=== PATIENT | male | born 1990 | race Caucasian/White ===

== ENCOUNTER 2017-11-09 23:12 | Emergency (ER) | payer SELFPAY ==
[2017-11-09] MEDS ORDERED: Albuterol-Ipratrop 3 mg / 0.5 (3 ml) UD INH STA ×3 (23:34→23:41)
[2017-11-09 23:54] LABS: BASO % 0.4 % (0.0-2.0); EOS # 0.5 K/uL (0.0-0.7); EOS % 5.2 % (0.0-4.0); HEMOGLOBIN 15.2 g/dL (12.0-18.0); LYMPH # 1.2 K/uL (1.0-4.3); LYMPH % 12.6 % (20.0-40.0); MEAN CELL VOLUME 80.9 fl (80.0-94.0); MEAN CORPUSCULAR HEMOGLOBIN 27.7 pg (27.0-31.0); MEAN CORPUSCULAR HGB CONC 34.2 g/dL (33.0-37.0); MEAN PLATELET VOLUME 9.9 fl (7.2-11.7); MONO # 0.6 K/uL (0.0-0.8); MONO % 5.9 % (0.0-10.0); NEUT # 7.3 K/uL (1.8-7.0); NEUT % 75.9 % (50.0-75.0); NRBC % 0.1 % (0.0-0.0); RBC 5.51 Mil/uL (4.40-5.90); RED CELL DISTRIBUTION WIDTH 13.6 % (11.5-14.5); WHITE BLOOD COUNT 9.7 K/uL (4.8-10.8)
[2017-11-10 00:03] LABS: ALB/GLOB RATIO 1.2 (1.0-2.1); ALBUMIN 4.5 g/dL (3.5-5.0); ALT/SGPT 110 U/L (21-72); AST/SGOT 48 U/L (17-59); BLOOD UREA NITROGEN 20 mg/dl (9-20); GFR AFRICAN-AMERICAN > 60; GFR NON-AFRICAN AMERICAN > 60
[2017-11-10 00:17] LABS: ABG ALLEN TEST YES; ARTERIAL BLOOD GAS HEMOGLOBIN 15.9 g/dL (11.7-17.4); ARTERIAL BLOOD GAS O2 CAPACITY 21.2 mL/dL (16-24); ARTERIAL BLOOD GAS O2 CONTENT 21.3 ML/dL (15-23); ARTERIAL BLOOD GAS O2 SAT 100.4 % (95-98); ARTERIAL BLOOD GAS PCO2 39 mm/Hg (35-45); ARTERIAL BLOOD GAS PH 7.41 (7.35-7.45); ARTERIAL BLOOD GAS PO2 98 mm/Hg (80-100); ARTERIAL BLOOD GAS TCO2 25.9 mmol/L (22-28)
[2017-11-10] MEDS ORDERED: Magnesium Sulfate 2 gm/50 ml 2 GM/50 ML BAG IVPB ONE (00:20)
[2017-11-10] MEDS ORDERED: Magnesium Sulfate 2 gm/50 ml 2 GM/50 ML BAG ONE (00:24)
--- NOTE | 2017-11-10 00:41 | ED PDOC ---
- Laboratory Results Result Diagrams: 11/09/17 23:51 11/09/17 23:51 - ECG O2 Sat by Pulse Oximetry: 93 (RA) Medical Decision Making Medical Decision Making: Patient signed out to me by Dr. Elizabeth at 00:00, pending labs and re- evaluation. (-) for influenza a/b Remining labs show no clinically significant abnormalities including Troponin and proBNP Time: 03:38 CT Angio Chest PE Protocol FINDINGS: No emboli in the main pulmonary arteries. No emboli distally however evaluation is suboptimal secondary to patient motion and bolus timing. No aortic dissection or aneurysm. No pleural or pericardial effussions. No pulmonary consolidation. IMPRESSION: No acute findings. Patient is no longer tachycardiac or hypoxic. Marked improvements in symptoms reported by patient. Diagnoses are acute bronchitis and flu-like symptoms. Upon provider reevaluation patient is feeling better, is medically stable, and requires no further treatment in the ED at this time. Patient will be discharged with Rx for Proair Hfa, Zithromax, Tamiflu and predniSONE Tab. Counseling was provided and all questions were answered regarding diagnosis and need for follow up with PCP. There is agreement to discharge plan. Return if symptoms persist or worsen. Scribe Attestation: Documented by Alton Hassan, acting as a scribe for Logan Maier M.D Provider Scribe Attestation: All medical record entries made by the Scribe were at my direction and personally dictated by me. I have reviewed the chart and agree that the record accurately reflects my personal performance of the history, physical exam, medical decision making, and the department course for this patient. I have also personally directed, reviewed, and agree with the discharge instructions and disposition. Disposition - Clinical Impression Clinical Impression: Bronchitis with bronchospasm, Flu-like symptoms - POA Present On Arrival: None - Disposition Referrals: [facility] [Outside] Disposition: Routine/Home Disposition Time: :23 Condition: STABLE Prescriptions: Albuterol Sulfate [Proair Hfa] 0.09 mg IH Q6 PRN #1 inh PRN Reason: Shortness Of Breath Azithromycin [Zithromax] 250 mg PO QAM #1 pkg Oseltamivir [Tamiflu] 75 mg PO BID #10 cap predniSONE [predniSONE Tab] 60 mg PO QAM #12 tab Instructions: Acute Bronchitis Forms: [facility] (Greenlandic)
[2017-11-10 01:04] LABS: B-TYPE NATRIURETIC PEPTIDE 33.6 pg/ml (0-450)
[2017-11-10] MEDS ORDERED: Sodium Chloride 0.9% 50 ML IV ONE (01:12)
[2017-11-10] MEDS ORDERED: Iodixanol 320 MG/ML 100 ML BOTTLE IV ONE (01:12)
[2017-11-10] MEDS ORDERED: cefTRIAXone (Rocephin) 1 gm Inj ONE (01:58)
[2017-11-10] MEDS ORDERED: Sodium Chloride 0.9% 1,000 ML IV STA (02:05)
[2017-11-10 03:04] VITALS: TEMP 98.4
--- NOTE | 2017-11-10 03:39 | CT ---
EXAM: CT Angiography Chest With Intravenous Contrast EXAM DATE/TIME: 11/10/2017 12:31 AM CLINICAL HISTORY: 26 years old, male; Pain; Chest pain; Type not specified; Additional info: Chest pain R/O pe TECHNIQUE: Axial computed tomographic angiography images of the chest with intravenous contrast using pulmonary embolism protocol. All CT scans at this facility use one or more dose reduction techniques, viz.: automated exposure control; ma/kV adjustment per patient size (including targeted exams where dose is matched to indication; i.e. head); or iterative reconstruction technique. MIP reconstructed images were created and reviewed. Coronal and sagittal reformatted images were created and reviewed. CONTRAST: 95 mL of visipaque administered intravenously. COMPARISON: No relevant prior studies available. FINDINGS: No emboli in the main pulmonary arteries. No emboli distally however evaluation is suboptimal secondary to patient motion and bolus timing. No aortic dissection or aneurysm. No pleural or pericardial effussions. No pulmonary consolidation. IMPRESSION: No acute findings.
[2017-11-10 04:21] VITALS: O2SAT 93
[2017-11-10 04:51] VITALS: BP 145/85; PULSE 92; RESP 18
--- NOTE | 2017-11-10 12:15 | RAD ---
HISTORY: sob COMPARISON: No prior. FINDINGS: LUNGS: No active pulmonary disease. PLEURA: No significant pleural effusion identified, no pneumothorax apparent. CARDIOVASCULAR: Normal. OSSEOUS STRUCTURES: No significant abnormalities. VISUALIZED UPPER ABDOMEN: Normal. OTHER FINDINGS: None. IMPRESSION: No active disease.
== END 2017-11-10 04:10 | disposition home or self-care (01) ==
LOC: H.ER 23:12
DX: J40 Bronchitis, not specified as acute or chronic (principal); J98.01 Acute bronchospasm
CPT/HCPCS: 71045; 71275; 80053; 82803; 83605; 83735; 83880; 84100; 84484; 85025; 87040; 87804; 96365; 96375; 99285; J0696; J2765; J2930; J7040; Q9967